=== PATIENT | female | born 1970 | race Caucasian/White ===

== ENCOUNTER 2022-03-16 21:25 | Emergency (ER) | payer OTHER ==
[~2022-03-16] VITALS: Ht 167.6 cm; Wt 81.6 kg
--- NOTE | 2022-03-16 21:42 | NUR ---
c/o pain on r foot. Seen and getting examined by Dr. Murray. VSS at this time.
[2022-03-16 22:22] VITALS: BP 130/80
--- NOTE | 2022-03-16 22:22 | NUR ---
Patient discharged to home in stable condition. Written and verbal after care instructions given. Patient verbalizes understanding of instructions. Stressed follow up or return to ER for worsening s/s.
== END 2022-03-16 22:23 | disposition home or self-care (01) ==
LOC: ER 21:25
DX: R22.42 Localized swelling, mass and lump, left lower limb (principal); R03.0 Elevated blood-pressure reading, without diagnosis of hypertension
CPT/HCPCS: 73630; A4663